=== PATIENT | female | born 1990 | race Asian ===

== ENCOUNTER → 2016-10-05 | Outpatient (CLI) | payer OTHER ==
[2016-10-05 16:10] LABS: BASO % 0.2 %; BASO ABS # 0.02 K/uL (0-0.2); COMPLETE YES; EOS % 0.9 %; HEMATOCRIT 43.2 % (37-47); IG% 0.1 %; LYMPH % 35.1 %; MEAN CELL VOLUME 86.6 fL (80-100); MEAN CORPUSCULAR HEMOGLOBIN 30.7 pg (25-34); MEAN CORPUSCULAR HGB CONC 35.4 g/dl (32-36); MONO % 4.8 %; NEUT % 58.9 %; PLATELET COUNT 292 K/uL (130-400); RED BLOOD COUNT 4.99 M/uL (4.2-5.4); WHITE BLOOD COUNT 10.55 K/uL (4.8-10.8)
[2016-10-05 16:35] LABS: ALT/SGPT 26 U/L (12-78); AMYLASE 61 U/L (25-115); AST/SGOT 13 U/L (15-37); BLOOD UREA NITROGEN 10 mg/dl (7-18); BUN/CREATININE RATIO 13.8 (10-20); CALCIUM 8.8 mg/dl (8.5-10.1); CARBON DIOXIDE 28 mmol/L (21-32); CHLORIDE 103 mmol/L (98-107); CREATININE 0.73 mg/dl (0.60-1.20); GLUCOSE 66 mg/dl (70-99); POTASSIUM 3.3 mmol/L (3.5-5.1); SODIUM 138 mmol/L (136-145)
[2016-10-05 16:46] LABS: ALB/GLOB RATIO 1.1 (0.9-2); ALKALINE PHOSPHATASE 100 U/L (45-117)
== END | disposition home or self-care (01) ==
LOC: C.LAB 14:21
PROVIDERS: ATTEND Family Medicine
DX: R14.0 Abdominal distension (gaseous) (principal); Z79.899 Other long term (current) drug therapy; R53.81 Other malaise; R53.83 Other fatigue; R35.0 Frequency of micturition

== ENCOUNTER → 2017-05-05 | Outpatient (CLI) | payer OTHER ==
[2017-05-05 10:17] LABS: CHOLESTEROL/HDL RATIO 3.8
== END | disposition home or self-care (01) ==
LOC: C.LAB 09:23
PROVIDERS: ATTEND Nurse Practitioner
DX: Z13.220 Encounter for screening for lipoid disorders (principal)

== ENCOUNTER → 2017-11-26 | Outpatient (CLI) | payer OTHER | END | disposition home or self-care (01) | LOC: C.PAPS 10:03 | PROVIDERS: ATTEND Physician Assistant | DX: Z12.4 Encounter for screening for malignant neoplasm of cervix (principal) ==

== ENCOUNTER 2019-10-27 13:11 | Inpatient (IN) ==
[2019-10-28] MEDS ORDERED: miSOPROStoL 50 MCG TAB PO ONE (08:31)
[2019-10-28] MEDS ORDERED: OXYTOCIN 30 UNITS/500 ML BAG IV PRN (08:31)
[2019-10-28 09:07] LABS: Hematocrit (blood only) 37.8 % (37-47); Hemoglobin 13.1 g/dL (12.0-16.0); Mean Corpuscular Hemoglobin 29.8 pg (25-34); Mean Corpuscular Volume 86.1 fL (80-100); Mean Platelet Volume 9.2 fL (7.4-10.4); Platelet Count 233 K/uL (130-400); RDW Coefficient of Variation 14.7 % (11.5-14.5); RDW Standard Deviation 46.3 fL (36.4-46.3); Red Blood Count 4.39 M/uL (4.2-5.4); White Blood Count 9.73 K/uL (4.8-10.8)
[2019-10-28 09:12] LABS: Mean Corpuscular Hgb Conc 34.7 g/dL (32-36)
[2019-10-28] MEDS ORDERED: miSOPROStoL 50 MCG TAB PO SCH (13:45)
[2019-10-28] MEDS: LACTATED RINGER'S 1,000 ML IV PRN ×2 (19:08→21:40)
[2019-10-28] MEDS ORDERED: BUTORPHANOL TARTRATE 1 MG/ML VIAL IV PRN ×2 (19:09→19:52)
[2019-10-28] MEDS ORDERED: fentaNYL citrate 100 MCG/2 ML VIAL ONE (20:03)
[2019-10-28] MEDS ORDERED: BUPIVACAINE 0.25% 30 ML VIAL ONE (20:03)
[2019-10-28] MEDS ORDERED: fentaNYL 2MCG/ML ROPIV 1.25MG/ML 100 ML BAG EPI ONE (20:03)
[2019-10-28] MEDS ORDERED: ePHEDrine sulfate 50 MG/ML AMP ONE (20:03)
[2019-10-28] MEDS ORDERED: NALOXONE HCL 1 MG in SODIUM CHLORIDE 0.9% 1000ML 1,000 ML IV PRN (20:48)
[2019-10-28] MEDS ORDERED: ePHEDrine sulfate 50 MG/ML AMP IV PRN (20:48)
[2019-10-28] MEDS ORDERED: NALBUPHINE HCL INJ 10 MG/ML AMP IV PRN (20:48)
[2019-10-28] MEDS ORDERED: NALOXONE HCL 0.4 MG/1 ML VIAL/CARP IV PRN (20:48)
[2019-10-28] MEDS ORDERED: fentaNYL 2MCG/ML ROPIV 1.25MG/ML 100 ML BAG EPI PRN (20:48)
[2019-10-28] MEDS ORDERED: ONDANSETRON INJ 2 MG/ML 2 ML VIAL IV PRN (20:48)
[2019-10-28] MEDS ORDERED: DiphenhydrAMINE HCL 50 MG/ML VIAL IV PRN (20:48)
--- NOTE | 2019-10-28 20:50 | Anesthesiology Consultation ---
Date of Service October 28, 2019 Assessment & Plan Chart Review Chart Review: Patient NOT seen in Pre Admission Testing and Acceptable Risk for Labor Epidural Consults Requested none ASA ASA2 Proposed Anesthesia Anesthesia Type: Labor Epidural and CSE Risk / Benefits Reviewed With: PT / POA / Parent / Guardian, Accepts Plan and Informed Consent Obtained History Height/Weight Height: 5 ft 3 in Weight: 93.894 kg Allergies Allergy/AdvReac Type Severity Reaction Status Date / Time No Known Allergies Allergy Verified 07/06/19 06:10 Medications Home Medications Medication Instructions Recorded Confirmed Last Taken calcium carbonate-vitamin D3 1 tab PO DAILY 07/06/19 10/28/19 10/27/19 20:00 [Calcium 500 + D] vit-iron fum-folic ac 1 tab PO DAILY 07/06/19 10/28/19 10/27/19 20:00 [ Vitamin] Active Medications Generic Name Dose Route Start Last Admin Trade Name Freq PRN Reason Stop Dose Admin Butorphanol Tartrate 1 mg 10/28/19 19:09 10/28/19 19:23 Stadol IV 11/27/19 19:08 1 mg Q2R PRN Administration Pain Butorphanol Tartrate 1 mg 10/28/19 19:52 10/28/19 19:57 Stadol IV 11/27/19 19:51 1 mg ONCE PRN Administration Pain Lactated Ringer's 1,000 mls @ 125 mls/hr 10/28/19 08:31 10/28/19 19:46 Lr IV 10/30/19 08:30 999 mls/hr .Q8H PRN Infusion L&D Protocol Protocol Misoprostol 50 mcg 10/28/19 13:45 10/28/19 14:57 Cytotec PO 11/27/19 13:44 50 mcg ONCE LINO Administration NPO Date Last Intake of Fluids: 10/28/19 Time Last Intake of Fluids: 20:00 Date Last Intake of Solids: 10/28/19 Time Last Intake of Solids: 06:30 Past Medical History Medical History Dengue fever when she was 7 years old Exercise / Class Metabolic Activity II 4-5 Yardwork/Stairs/Walk up hill Past Family History Family History Father Hypertension Past Surgical History Surgical History [place] teeth removed Past Anesthesia History No Hx of Anesthesia Complications and No Family Hx of Anesthesia Complications History of PONV No Hx of PONV and No Hx of Motion Sickness Social History Smoking Status: Never smoker Hx Alcohol Use: No Hx Substance Use: No Review of Systems no chest pain or sob Physical Exam Vital Signs Last Vital Signs Temp 37.1 C 10/28/19 19:23 Pulse 84 10/28/19 20:48 Resp 18 10/28/19 19:23 BP 122/77 10/28/19 19:23 Pulse Ox 95 10/28/19 20:48 SpO2 95 ENMT Mouth: no TMJ abnormality Thyromental Distance: > or= 3.5 Finger Breadths Mallampati Class: II Neck normal visual inspection Respiratory normal respiratory effort Auscultation: lungs clear to auscultation bilaterally Cardiovascular Rate/Rhythm: regular rate and regular rhythm Musculoskeletal Spine: normal cervical ROM Neurologic moves all extremities Psychiatric Orientation: alert and oriented x 3 Testing Laboratory Results 10/28/19 08:48
[2019-10-29] MEDS ORDERED: OXYTOCIN 30 UNITS/500 ML BAG IV PRN ×2 (00:04→05:04)
[2019-10-29] MEDS ORDERED: CALCIUM CARBONATE 500 MG CHEWABLE TAB PO PRN (03:12)
[2019-10-29] MEDS ORDERED: CALCIUM CARBONATE 500 MG CHEWABLE TAB ONE (03:16)
[2019-10-29] MEDS: LACTATED RINGER'S 1,000 ML IV PRN (03:20)
[2019-10-29] MEDS ORDERED: HYDROCORTISONE ACETATE 25 MG SUPP PR PRN (05:04)
[2019-10-29] MEDS ORDERED: BENZOCAINE 20% AER SPR 82.5 GM CAN EXT PRN (05:04)
[2019-10-29] MEDS ORDERED: DIPHTHERIA/TETANUS/PERTUSSIS 0.5 ML SYR/VIAL IM ONE (05:04)
[2019-10-29] MEDS ORDERED: SUPERCREAM 0.870% 15 GM JAR EXT PRN (05:04)
[2019-10-29] MEDS ORDERED: OXYCODONE/ACETAMINOPHEN 5mg/325mg TAB PO PRN (05:04)
[2019-10-29] MEDS ORDERED: bisacodyL 10 MG SUPP PR PRN (05:04)
--- NOTE | 2019-10-29 05:24 | Operative Report ---
DATE OF OPERATION: 10/29/2019 DELIVERY NOTE The patient is 1, para 1. Blood type is B positive, group B strep negative. This patient has had a lot of hip pain in the last 2 months of her and requested induction at 39 weeks due to difficulty walking, a lot of pain. She was brought in for induction at 39+ weeks gestation, given p.o. Cytotec, 5 hours later given another one. She went into spontaneous labor. When she was about 4-5 cm, she received epidural anesthesia from which she obtained good pain control. After that, membranes were ruptured surgically and she was augmented with IV Pitocin. She went to full dilatation and delivered a live female via direct occiput anterior position over an intact perineum. Infant was suctioned through the mouth and the nose. Cord was clamped, cut by the father. Cord blood was taken. With IV Pitocin running, the placenta was removed intact. Inspection of the perineum revealed a first-degree laceration. This was repaired anatomically by approximating the vaginal mucosa out and to beyond the hymenal ring using a deep suture to approximate the bulbocavernosus muscles, separate suture to approximate the perineal body, and then another deep suture to bolster the sphincter capsule. Then a running subcuticular suture was used to approximate the skin edges. Following this, vag exam including rectovaginal exam revealed no hematoma formation. Hemostasis was good. Estimated blood loss was 200 mL. Was noted to have meconium staining of the placenta, was sent for exam. I attest to the content of the Intraoperative Record and any orders documented therein. Any exception s are noted below.
[2019-10-29] MEDS: IBUPROFEN 600 MG TAB PO PRN ×4 (06:05→19:29)
[2019-10-29] MEDS: ACETAMINOPHEN W/CODEINE #3 1 TAB PO PRN ×2 (06:58→11:04)
--- NOTE | 2019-10-29 07:24 | Anesthesia Procedure Note ---
Date of Service October 29, 2019 Anesthesia Post Epidural Note Vital Signs Vital Signs: Temp Pulse Resp BP Pulse Ox 37.2 C 111 H 18 113/63 97 10/29/19 05:07 10/29/19 07:22 10/29/19 06:37 10/29/19 07:22 10/29/19 05:00 Pain Intensity Back: Pain Intensity: 3 Notes Mental Status: alert / awake / arousable Nausea / Vomiting: adequately controlled Pain: adequately controlled Airway Patency, RR, SpO2: stable & adequate BP & HR: stable & adequate Hydration State: stable & adequate Neuraxial Anesthesia: was administered and sensory block is resolving Anesthetic Complications: no major complications apparent and Pt Satisfied with anesthetic care Epidural: Removed without complications and With tip intact
[2019-10-29] MEDS: FERROUS SULFATE 325 MG TAB PO SCH (09:43)
[2019-10-29] MEDS: PRENATAL VITAMIN 1 TAB PO SCH (09:43)
[2019-10-29] MEDS: DOCUSATE SODIUM 100 MG CAP PO SCH ×2 (09:43→19:30)
[2019-10-30] MEDS: IBUPROFEN 600 MG TAB PO PRN ×5 (00:07→19:46)
[2019-10-30] MEDS: ACETAMINOPHEN 325 MG TAB PO PRN ×4 (02:09→20:39)
[2019-10-30 07:14] LABS: Hematocrit (blood only) 33.2 % (37-47); Hemoglobin 11.3 g/dL (12.0-16.0); Mean Corpuscular Hemoglobin 29.5 pg (25-34); Mean Corpuscular Volume 86.7 fL (80-100); Mean Platelet Volume 9.1 fL (7.4-10.4); Platelet Count 217 K/uL (130-400); RDW Coefficient of Variation 14.9 % (11.5-14.5); RDW Standard Deviation 46.1 fL (36.4-46.3); Red Blood Count 3.83 M/uL (4.2-5.4); White Blood Count 13.02 K/uL (4.8-10.8)
[2019-10-30] MEDS: DOCUSATE SODIUM 100 MG CAP PO SCH ×2 (08:08→19:46)
[2019-10-30] MEDS: FERROUS SULFATE 325 MG TAB PO SCH (08:08)
[2019-10-30] MEDS: PRENATAL VITAMIN 1 TAB PO SCH (08:08)
--- NOTE | 2019-10-30 12:17 | Obstetrical Progress Note ---
Date of Service October 30, 2019 Physical Exam Physical Exam: abdomen soft and non tender no calf tenderness limited ambulation vaginal bleeding scant hgb 11.3 Results & Data Vital Signs (Past 12 Hours) Vital Signs Temp Pulse Pulse Resp BP BP Pulse Ox 10/30/19 08:00 36.5 C 95 H 20 115/75 97 10/30/19 03:12 36.5 C 83 16 93/59 L 96
[2019-10-30] MEDS ORDERED: bisacodyL 5 MG TABEC PO SCH (20:00)
[2019-10-31] MEDS: IBUPROFEN 600 MG TAB PO PRN ×3 (00:07→11:34)
[2019-10-31] MEDS: ACETAMINOPHEN 325 MG TAB PO PRN ×2 (02:39→08:17)
[2019-10-31 06:49] LABS: Hematocrit (blood only) 30.9 % (37-47); Hemoglobin 10.3 g/dL (12.0-16.0)
[2019-10-31] MEDS: PRENATAL VITAMIN 1 TAB PO SCH (08:16)
[2019-10-31] MEDS: DOCUSATE SODIUM 100 MG CAP PO SCH (08:16)
[2019-10-31] MEDS: FERROUS SULFATE 325 MG TAB PO SCH (08:17)
--- NOTE | 2019-10-31 08:29 | Obstetrical Progress Note ---
Date of Service October 31, 2019 Physical Exam Physical Exam: abdomen soft and non tender ambulating well no calf tenderness vaginal bleeding scant hgb 10.3 unable to void will discharge with varela catheter Results & Data Vital Signs (Past 12 Hours) Vital Signs Temp Pulse Resp BP Pulse Ox 10/30/19 23:10 36.5 C 109 H 18 135/78 96
== END 2019-10-31 13:42 | disposition home or self-care (01) | DRG 807 ==
LOC: 4S1 10-28 07:36 → 4S2 10-29 07:49